=== PATIENT | female | born 1960 | race Caucasian/White ===

== ENCOUNTER → 2023-07-27 13:13 | Outpatient (REF) | payer BC, SELFPAY | LOC: HWRAD 13:13 | PROVIDERS: ATTENDING PHYSICIAN Internal Medicine | DX: Z12.31 Encounter for screening mammogram for malignant neoplasm of breast (principal); M85.9 Disorder of bone density and structure, unspecified | CPT/HCPCS: 77063; 77067; 77080 ==

== ENCOUNTER 2023-10-10 16:06 | Emergency (ER) | payer BC, SELFPAY ==
[2023-10-10 16:08] VITALS: BP 146/71
--- NOTE | 2023-10-10 16:44 | ED.GENMED ---
History of Present Illness
General
Chief Complaint: Abdominal Pain
Source: patient
Exam Limitations: none
Time Seen by Provider: 10/10/23 16:33
Nursing documentation reviewed up to this point in time: agreed with
Travel History
Have you had any contact with someone who has COVID-19?: No
Do you have any symptoms of coronavirus? Fever > 100 degrees, chills, cough, shortness of breath, sore throat, loss of taste or smell, muscle aches, or headache?: Yes
Symptoms:: fever
History of Present Illness
History of Present Illness:
63 yr old female presents to the ER for evaluation. Patient reports last week she had UTI symptoms and went to her family doctor and tested positive for urine infection via urine culture. She took Bactrim and took her last dose today. Since she
started the Bactrim she started with immediate diarrhea and has had nausea and vomiting. Since then she continues to have abdominal pain across the lower abdomen and right flank. She feels very bloated. She has had nausea sweats.
Past History
Past History
ED Past Medical History: Asthma and Other (has had chronic pain both knees. Had each knee injected in the past by Dr. Taylor. Insurance changed and she can no longer go to him. Can go to [facility].)
ED Past Surgical History: and Gynecological
Social History
Tobacco: Non-smoker
Alcohol: Occasional
Drug: None
Personal:
Living: with family
Family History
Family History: Diabetes and Hypertension
Review of Systems
Review of Systems
Allergies reviewed?: Yes
All Other Systems: ROS reviewed and negative except as documented in HPI and ROS
Constitutional: Reports no symptoms
EENT: Reports no symptoms
Respiratory: Reports no symptoms
Cardiac: Reports no symptoms
ABD/GI: Reports abdominal pain, nausea, vomiting and diarrhea
: Reports flank pain
Musculoskeletal: Reports no symptoms
Skin: Reports no symptoms
Neurological: Reports no symptoms
Psychiatric: Reports no symptoms
Phy Exam
General Physical Exam
General Presentation: no apparent distress
General age: appears stated age
General Skin: warm and dry
General Habitus: normal
General Mental: alert
General Hydration: appears well hydrated
Gastrointestinal Exam
Gastrointestinal Exam: soft and other (tender throughout lower abd region and RUQ )
Neurological Exam
Neurological Exam: alert and oriented x3
Musculoskeletal Exam
Musculoskeletal Exam: full ROM
Skin Exam
Skin Exam: normal color and warm/dry
Psychiatric Exam
Psychiatric Exam: normal mood/affect
Course
Orders/Labs/Results
Orders:
Orders
10/10/23 16:42
IV Insert/Care/Rem.- Treatment PRN
0.9% Sodium Chloride 1000 ml [Nss] 1,000 ml IV BOLUS
10/10/23 16:43
CT Abd/Pel (IV only)-DH only Urgent
Comment:
Reason For Exam: abd pain + uti s/s right flank pain
US Abdomen Complete/Upper Urgent
Comment:
Reason For Exam: ruq pain
10/10/23 16:54
Complete Blood Count/With Diff Urgent
Comprehensive Metabolic Panel Urgent
Lipase Urgent
10/10/23 16:55
Urinalysis Reflex To Culture Urgent
Date Specimen was Collected: 10/10/23
Time Specimen was Collected: 16:54
Urine Microscopic Reflex Cult Urgent
Urine Culture Urgent
LEOLA Source: U
Specimen Description:
Date Specimen was Collected: 10/10/23
Time Specimen was Collected: 16:54
Abnormal Lab Results
10/10/23 10/10/23
16:54 16:55
Chloride 111 H mmol/L
(98-107)
AST 58 H U/L
(14-36)
ALT 68 H U/L
(0-35)
Urine Ketones 1+ A
(Negative)
Leukocyte Esterase Rfl Trace A
(Negative)
Urine Bacteria (Reflex) Many A
(Negative)
10/10/23 16:54
10/10/23 16:54
Vital Signs
Initial and Last Documented VS:
Initial Vital Signs
Temp Pulse Resp BP Pulse Ox
98.4 F 67 18 146/71 97
10/10/23 16:08 10/10/23 16:08 10/10/23 16:08 10/10/23 16:08 10/10/23 16:08
Last Documented Vital Signs
Temp Pulse Resp BP Pulse Ox
98.4 F 62 18 116/68 98
10/10/23 16:08 10/10/23 18:33 10/10/23 18:33 10/10/23 18:33 10/10/23 18:33
MDM/Problems Addressed
MDM/Problems Addressed:
As documented patient is a 63-year-old female with recent UTI completed Bactrim today presents abdominal pain bloating. Nausea sweats. Patient presents awake alert no acute distress right-sided tenderness both right upper quadrant and diffuse.
Patient is afebrile here with a normal white count normal renal function normal sodium potassium normal bilirubin AST ALT very minimally elevated.
Ultrasound done shows fatty liver which is new CAT scan done and pending at this time.
1920: CT neg
Possible viral syndrome possible irritable bowel, will DC with Bentyl close outpatient follow-up family doctor and GI specialist
*Radiology
Radiology exam reviewed: radiology read reviewed
*Critical Care Note
Total Time (30-74mins, 75-104mins- exclusive of procedures): Not Applicable
ED Attending Note
-
Portions of this chart may have been created with voice recognition software.� Occasional wrong word or��sound alike� substitutions may have occurred due to the inherent limitations of voice recognition software.
Discharge Plan
Departure
Patient Disposition: Home (Routine Discharge)
Date of Disposition: 10/10/23
Time of Disposition: 19:22
Patient with high blood pressure during this ER visit?: Yes
Condition: Fair
Covid-19: Not Applicable
Discharge Problem:
Abdominal pain
Instructions: Abdominal Pain, BLOOD PRESSURE
Prescriptions:
New
dicyclomine 20 mg tablet
20 mg PO QID PRN (Reason: abdominal cramping) Qty: 10 0RF
No Action
multivitamin with folic acid [Tab-A-Pema] 1 TABLET tablet
1 tab PO DAILY
topiramate 100 MG tablet
200 mg PO BID
duloxetine 60 MG capsule,delayed release(DR/EC)
60 mg PO QPM
ibuprofen 400 MG tablet
400 mg PO Q6HPRN PRN (Reason: breakthru pain) Qty: 0 0RF
Rx Instructions:
w food
meclizine 25 MG tablet
25 mg PO Q8HPRN PRN (Reason: dizziness) Qty: 20 0RF
metaxalone 800 mg tablet
800 mg PO TID PRN (Reason: muscle pain) Qty: 20 0RF
Referrals:
Jessica Castellon MD [Family Provider] -
Monica Bui MD [Active] -
Activity Restrictions/Additional Instructions:
Baker diet as discussed. A prescription for Bentyl, antispasmodic medication was sent to your pharmacy. Take as directed. Follow-up closely with family doctor in the next several days for reevaluation as well as GI specialist but return if any
worsening of symptoms.
Interventions
Interventions:
*Risk Screen - Suicide Last Done: 10/10/23 16:08
*General Assessment Last Done: 10/10/23 16:08
*Neglect/Abuse Screening Last Done: 10/10/23 16:08
ED- Fall Risk Assessment Last Done: 10/10/23 18:04
*ED COVID-19 Vaccine History Last Done: 10/10/23 16:11
CV-Tmnguz-Xzqsqynura Assessment Last Done: 10/10/23 18:04
Discharge Date and Time
Print Language: [place]
[2023-10-10 17:01] VITALS: BMI 32.0
[2023-10-10] MEDS: NSS 1000 IV (17:01)
[2023-10-10 17:19] LABS: % Basophils 0.4 % (0-2); % Eosinophils 1.6 % (0-6); % Immature Granulocytes 0.1 % (0-0.5); % Lymphocytes 24.8 % (20.5-51.1); % Monocytes 6.4 % (1.7-9.3); % Neutrophils 66.7 % (42.2-75.2); Absolute Eosinophils 0.1 10^3/uL (0-0.7); Absolute Lymphocytes 1.8 10^3/uL (1.2-3.4); Absolute Monocytes 0.5 10^3/uL (0.1-0.6); Absolute Neutrophils 4.9 10^3/uL (1.4-6.5); Hematocrit 41.2 % (37.0-47.0); Mean Corpuscular Hgb 30.8 pg (27.0-31.0); Mean Corpuscular Volume 90.5 fL (81.0-99.0); Nucleated Red Blood Cells % 0 %; Platelet Count 223 10^3/uL (130-400); Red Blood Cell Count 4.55 10^6/uL (4.20-5.40); Red Cell Dist. Width 13.3 % (11.5-14.5); White Blood Cell Count 7.4 10^3/uL (4.8-10.8)
[2023-10-10 17:24] LABS: Urine Albumin Negative (Neg - Trace); Urine Bilirubin Negative (Negative); Urine Character Slightly Cloudy (Clear); Urine Color Yellow; Urine Glucose Negative (Negative); Urine Ketone 1+ (Negative); Urine Leukocyte Trace (Negative); Urine Nitrite Negative (Negative); Urine Occult Blood Negative (Negative); Urine Specific Gravity 1.025 (<1.030); Urine Urobilinogen Negative (Neg - 1+)
[2023-10-10 17:30] LABS: ALT (SGPT) 68 U/L (0-35); AST (SGOT) 58 U/L (14-36); Albumin 3.9 g/dl (3.5-5.0); Alkaline Phosphatase 88 U/L (38-126); Blood Urea Nitrogen 17 mg/dl (7-17); Calcium 9.1 mg/dl (8.4-10.2); Carbon Dioxide 22 mmol/L (22-30); Chloride 111 mmol/L (98-107); Estimated Creatinine Clearance 80 ml/min; Glucose 89 mg/dl (70-99); Lipase 48 U/L (23-300); Potassium 3.9 mmol/L (3.5-5.1); Sodium 139 mmol/L (135-145); Total Bilirubin 0.7 mg/dl (0.2-1.3); Total Protein 6.4 g/dl (6.3-8.2); eGFR > 60.00
[2023-10-10 17:36] LABS: Urine Bacteria Many (Negative); Urine Calcium Oxalate Crystals Present; Urine Mucus Many; Urine Red Blood Cell 0-2 /HPF (0-2); Urine White Cell 0-2 /HPF (0-5)
[2023-10-10 18:33] VITALS: BP 116/68
[2023-10-10] MEDS: TORADOL 15 MG IV (19:31)
== END 2023-10-10 19:39 | disposition home or self-care (01) ==
LOC: EMR 16:06
PROVIDERS: Nurse Practitioner; EMERGENCY PHYSICIAN Student in an Organized Health Care Education/Training Program; FAMILY PHYSICIAN Internal Medicine
DX: R10.30 Lower abdominal pain, unspecified (principal); R03.0 Elevated blood-pressure reading, without diagnosis of hypertension
CPT/HCPCS: 99285; 96374; 96361; 74177; 76700; 80053; 81003; 81015; 83690; 85025; 87086; Q9967

== ENCOUNTER 2024-10-27 14:23 | Emergency (ER) | payer BC, SELFPAY ==
[2024-10-27 14:25] VITALS: BP 124/90
[2024-10-27 14:47] LABS: Hematocrit 46.5 % (37.0-47.0); Hemoglobin 15.4 g/dL (12.0-16.0); Mean Corp Hgb Conc. 33.1 g/dL (33.0-37.0); Mean Corpuscular Volume 92.4 fL (81.0-99.0); Nucleated Red Blood Cells % 0 %; Platelet Count 277 10^3/uL (130-400); Red Cell Dist. Width 12.9 % (11.5-14.5)
[2024-10-27 15:10] LABS: ALT (SGPT) 37 U/L (0-35); AST (SGOT) 28 U/L (14-36); Albumin 4.1 g/dl (3.5-5.0); Alkaline Phosphatase 85 U/L (38-126); Blood Urea Nitrogen 27 mg/dl (7-17); Calcium 9.4 mg/dl (8.4-10.2); Carbon Dioxide 33 mmol/L (22-30); Chloride 108 mmol/L (98-107); Glucose 114 mg/dl (70-99); Lipase 36 U/L (23-300); Potassium 5.0 mmol/L (3.5-5.1); Sodium 140 mmol/L (135-145); Total Protein 7.0 g/dl (6.3-8.2); eGFR > 60.00
[2024-10-27 15:20] LABS: Troponin I < 0.012 ng/ml
--- NOTE | 2024-10-27 18:06 | ED.GENMED ---
History of Present Illness
General
Chief Complaint: Abdominal Pain
Source: patient and previous radiology exam
Exam Limitations: none
Time Seen by Provider: 10/27/24 17:17
Nursing documentation reviewed up to this point in time: agreed with
History of Present Illness
History of Present Illness:
64-year-old female presents with abdominal bloating acute on chronic problem started at least a year ago seen by her PCP and GI told she may have IBS she had some imaging, stopped eating gluten and dairy migraine headaches got better but bloating
has persisted she has sharp pain in her back, saw another GI think she had a colonoscopy, she has multiple medication allergies, multiple food allergies, she had a but no other abdominal surgeries she believes she is gaining weight in her
abdomen she has a hard time taking a deep breath she has no jaundice no alcohol
Past History
Past History
ED Past Medical History: Asthma
ED Past Surgical History: and Gynecological
Social History
Tobacco: Non-smoker
Alcohol: Occasional
Drug: None
Personal:
Living: with family
Employment: Retired
Family History
Family History: Diabetes and Hypertension
Review of Systems
Review of Systems
All Other Systems: Not applicable
Constitutional: Reports weight gain; Denies fever or fatigue
EENT: Reports no symptoms
Respiratory: Reports no symptoms
Cardiac: Reports no symptoms
ABD/GI: Reports abdominal pain; Denies nausea, vomiting, diarrhea, bloody stools, black stools or anorexia
: Reports flank pain
Musculoskeletal: Reports no symptoms
Skin: Reports no symptoms
Neurological: Reports no symptoms
Phy Exam
Physical Exam
Physical Exam:
Physical Exam
General: no apparent distress, not acutely ill
Neck: No jaundice
Heart: s1/s2 regular rate and rhythm, no murmur. equal radial pulses.
Lungs: no acute respiratory distress. clear bilaterally
Abdomen: Distended mild diffuse tenderness no obvious ascites no no obvious hernias appreciated
Neuro: alert and oriented. no focal neurological deficits
Skin: no rash
Psychiatric: well kept. interactive and cooperative
Extremities: no edema.
Course
Orders/Labs/Results
Orders:
Orders
10/27/24 14:27
Electrocardiogram (*1) Urgent
Reason for Study: Chest Pain
EKG- Treatment ONCE
10/27/24 14:39
C-Reactive Protein Urgent
Complete Blood Count/With Diff Urgent
Comprehensive Metabolic Panel Urgent
Erythrocyte Sed Rate Urgent
Comment: ADD ON
Free T4 Urgent
Comment: ADD ON
Lipase Urgent
TSH Urgent
Comment: ADD ON
Troponin I Urgent
10/27/24 17:40
Dicyclomine HCl [Bentyl] 20 mg IM NOW STA
10/27/24 17:41
Add On- LAB Urgent
Tests Added?: esr/crp
CT Abd/pelvis W Iv Cont Urgent
Comment:
Reason For Exam: pain bloating
10/27/24 18:30
Urinalysis Reflex To Culture Urgent
Date Specimen was Collected: 10/27/24
Time Specimen was Collected: 14:27
Urine Microscopic Reflex Cult Urgent
Urine Culture Urgent
LEOLA Source: U
Specimen Description:
Date Specimen was Collected: 10/27/24
Time Specimen was Collected: 14:27
10/27/24 20:11
Add On- LAB Urgent
Tests Added?: tsh, free t4
10/27/24 20:41
Dexamethasone Sod Phosphate [Decadron] 10 mg IV NOW STA
Diphenhydramine [Benadryl] 25 mg IV NOW STA
Abnormal Lab Results
10/27/24 10/27/24
14:39 18:30
Lymphocytes % 20.4 L %
(20.5-51.1)
Chloride 108 H mmol/L
(98-107)
Carbon Dioxide 33 H mmol/L
(22-30)
BUN 27 H mg/dl
(7-17)
Glucose 114 H mg/dl
(70-99)
ALT 37 H U/L
(0-35)
Urine Nitrite (Reflex) Positive A
(Negative)
Leukocyte Esterase Rfl 3+ A
(Negative)
Urine WBC (Reflex) 26-30 A /HPF
(0-5)
Urine Bacteria (Reflex) Many A
(Negative)
Urine Albumin (Reflex) 1+ A
(Neg - Trace)
10/27/24 14:39
10/27/24 14:39
Vital Signs
Initial and Last Documented VS:
Initial Vital Signs
Temp Pulse Resp BP Pulse Ox
98.1 F 88 16 124/90 97
10/27/24 14:25 10/27/24 14:25 10/27/24 14:25 10/27/24 14:25 10/27/24 14:25
Last Documented Vital Signs
Temp Pulse Resp BP Pulse Ox
98.1 F 64 16 126/63 98
10/27/24 14:25 10/27/24 20:00 10/27/24 20:00 10/27/24 20:00 10/27/24 20:00
MDM/Problems Addressed
Differential Diagnosis Includes:
IBS Food allergy colitis diverticulitis malignancy other
MDM/Problems Addressed:
Abdominal distention pain
Chronic conditions affecting care: Previous abdomnial surgery
Acute Exacerbation and/or Progression of Chronic Illness: Previous abdomnial surgery
*Pulse Oximetry
SaO2: 97
Oxygen Mode of Delivery: Room air
Patient hypoxic: no
*EKG
Interpreted by ED Provider?: Yes
Interpretation: normal
Comparison EKG: no comparison EKG present
Heart Rate: 78
Rate: normal
Rhythm: sinus
Ischemia: non-specific ST changes
*Repair Electric Motor Assembler Interpretation
Rate: normal
Interpretation: normal
Heart Rate: 78
Rhythm: sinus
*Critical Care Note
Total Time (30-74mins, 75-104mins- exclusive of procedures): Not Applicable
Data Reviewed
Review of Other/Old Records Reveals: Radiology Studies
Source: patient
Update Note
Update Note:
845, CT noted patient appears comfortable she has a red pruritic rash on her chest bilateral arms she states she was exposed to poison we will treat steroids Benadryl she wants to follow-up with an trim technician which I think is reasonable
ED Attending Note
-
Portions of this chart may have been created with voice recognition software.� Occasional wrong word or��sound alike� substitutions may have occurred due to the inherent limitations of voice recognition software.
Discharge Plan
Departure
Patient Disposition: Home (Routine Discharge)
Date of Disposition: 10/27/24
Time of Disposition: 20:44
Patient with high blood pressure during this ER visit?: No
Condition: Good
Covid-19: Not Applicable
Discharge Problem:
Dermatitis, Abdominal pain
Instructions: Dermatitis ( Contact ), Abdominal Pain
Prescriptions:
New
diphenhydramine HCl [Benadryl] 25 mg capsule
25 mg PO TID PRN (Reason: allergy symptoms) Qty: 20 0RF
dicyclomine 20 mg tablet
20 mg PO QID PRN (Reason: abdominal pain) Qty: 20 0RF
methylprednisolone [Medrol (Aram)] 4 mg tablets,dose pack
See Rx Instructions .ROUTE .COMPLEX Qty: 21 0RF
Rx Instructions:
for 6 days
No Action
multivitamin with folic acid [Tab-A-Pema] 1 TABLET tablet
1 tab PO DAILY
topiramate 100 MG tablet
200 mg PO BID
duloxetine 60 MG capsule,delayed release(DR/EC)
60 mg PO QPM
ibuprofen 400 MG tablet
400 mg PO Q6HPRN PRN (Reason: breakthru pain) Qty: 0 0RF
Rx Instructions:
w food
meclizine 25 MG tablet
25 mg PO Q8HPRN PRN (Reason: dizziness) Qty: 20 0RF
metaxalone 800 mg tablet
800 mg PO TID PRN (Reason: muscle pain) Qty: 20 0RF
dicyclomine 20 mg tablet
20 mg PO QID PRN (Reason: abdominal cramping) Qty: 10 0RF
Referrals:
Jacob Delong MD [Community, Heavy Equipment Plumbing Supervisor] - Next open appointment
Angie Cade DO [Family Provider, Family Practice]
Interventions
Interventions:
*Risk Screen - Suicide Last Done: 10/27/24 14:25
*General Assessment Last Done: 10/27/24 14:25
*Neglect/Abuse Screening Last Done: 10/27/24 14:25
*ED- Fall Risk Assessment Last Done: 10/27/24 18:33
*ED COVID-19 Vaccine History Last Done: 10/27/24 18:33
JH-Uewkyl-Fyvbjyiioh Assessment Last Done: 10/27/24 18:34
Discharge Date and Time
Print Language: LAO
[2024-10-27 18:25] VITALS: BP 135/75
[2024-10-27] MEDS: BENTYL 20 MG IM (18:28)
[2024-10-27 18:30] LABS: C-Reactive Protein < 5.00 mg/L (0.0-10.00)
[2024-10-27 18:33] VITALS: BMI 37.5
[2024-10-27 18:47] LABS: Urine Character Clear (Clear)
[2024-10-27 19:00] VITALS: BP 145/84
[2024-10-27 19:28] LABS: Urine Red Blood Cell 0-2 /HPF (0-2); Urine Squamous Cell >30 /LPF (Few); Urine White Cell 26-30 /HPF (0-5)
[2024-10-27 20:00] VITALS: BP 126/63
[2024-10-27 20:57] LABS: TSH < 0.02 uIU/ml (0.47-4.68)
[2024-10-27 21:00] VITALS: BP 151/75
[2024-10-27] MEDS: BENADRYL 25 MG IV (21:04)
[2024-10-27] MEDS: DECADRON 10 MG IV (21:05)
== END 2024-10-27 21:28 | disposition home or self-care (01) ==
LOC: EMR 14:23
PROVIDERS: Emergency Medicine; EMERGENCY PHYSICIAN Emergency Medicine; FAMILY PHYSICIAN Internal Medicine
DX: R10.9 Unspecified abdominal pain (principal); R14.0 Abdominal distension (gaseous); L30.9 Dermatitis, unspecified; J45.909 Unspecified asthma, uncomplicated; M19.90 Unspecified osteoarthritis, unspecified site; G43.909 Migraine, unspecified, not intractable, without status migrainosus; Z87.442 Personal history of urinary calculi; Z88.6 Allergy status to analgesic agent; Z91.040 Latex allergy status; Z88.5 Allergy status to narcotic agent; Z88.0 Allergy status to penicillin; Z88.8 Allergy status to other drugs, medicaments and biological substances; Z91.018 Allergy to other foods
CPT/HCPCS: 99285; 96375; 96372; 96374; 74177; 80053; 81003; 81015; 83690; 84439; 84443; 84484; 85025; 85652; 86140; 87077; 87086; 87186; 93005; Q9967